=== PATIENT | male | born 1960 | race Caucasian/White ===

== ENCOUNTER 2024-02-05 07:27 | Observation (INO) ==
[2024-02-05] MEDS: NOZIN NASAL SANITIZER TP ONE (07:37)
[2024-02-05] MEDS: LR 1,000 ML IV 1,000 ML IV ONE ×3 (08:11→14:49)
[2024-02-05 08:15] LABS: BASOPHILS % (AUTO) 0.5 % (0.2-1.0); EOSINOPHILS # (AUTO) 0.1 x10^3/uL (0.0-0.2); HEMATOCRIT 34.2 % (42.0-54.0); HEMOGLOBIN 11.6 g/dL (13.5-18.0); LYMPHOCYTES % (AUTO) 23.3 % (21.0-51.0); MEAN CORPUSCULAR HEMOGLOBIN 33.2 pg (27.0-34.0); MEAN CORPUSCULAR HGB CONC 33.8 g/dL (33.0-35.0); MEAN CORPUSCULAR VOLUME 98.2 fL (80.0-100.0); MONOCYTES # (AUTO) 0.5 x10^3/uL (0.3-0.8); MONOCYTES % (AUTO) 11.6 % (0.0-13.0); NEUTROPHILS # (AUTO) 2.6 x10^3/uL (2.2-4.8); NEUTROPHILS % (AUTO) 61.6 % (42.0-75.0); PLATELET COUNT 210 X10^3/uL (150.0-450.0); RED BLOOD COUNT 3.48 X10^6/uL (4.7-6.0); RED CELL DISTRIBUTION WIDTH 13.8 % (11.6-16.5); WHITE BLOOD COUNT 4.2 X10^3/uL (3.6-10.0)
[2024-02-05 08:27] LABS: ALANINE AMINOTRANSFERASE 13 Units/L (12-78); ALBUMIN 3.4 g/dL (3.4-5.0); ALKALINE PHOSPHATASE 86 Units/L (46-116); ASPARTATE AMINO TRANSFERASE 16 Units/L (15-37); BLOOD UREA NITROGEN 13 mg/dL (7-18); CALCIUM 8.6 mg/dL (8.5-10.1); CARBON DIOXIDE 33.6 mmol/L (21-32); CHLORIDE 100 mmol/L (98-107); GLUCOSE 84 mg/dL (65-99); SODIUM 138 mmol/L (136-145); TOTAL PROTEIN 7.4 g/dL (6.4-8.2); eGFR NON BLACK RACES > 60 (>60)
[2024-02-05] MEDS: DUONEB 0.5 MG/3 MG (3 mL) NEB ONE (09:06)
[2024-02-05] MEDS: NS 100 ML IV 100 ML ONE ×2 (11:02→12:24)
[2024-02-05] MEDS: ANCEF VIAL 1 GRAM ONE (11:02)
[2024-02-05] MEDS ORDERED: NEO-SYNEPHRINE INJ ONE (11:13)
[2024-02-05] MEDS ORDERED: KETAMINE HCL ONE (11:13)
[2024-02-05] MEDS: VERSED ONE (11:14)
[2024-02-05] MEDS: FENTANYL VIAL INJ 100 mcg ONE (11:14)
[2024-02-05] MEDS: DIPRIVAN VIAL 40 ML ONE (11:15)
[2024-02-05] MEDS: VISIPAQUE 50 ML ONE (11:32)
[2024-02-05] MEDS: MARCAINE 0.5% ONE (11:32)
[2024-02-05] MEDS: HEPARIN SODIUM IN D5W 75,000 UNITS/1,500 ML BAG ONE (11:32)
[2024-02-05] MEDS: VISIPAQUE 100 ML ONE (11:32)
[2024-02-05] MEDS: ROBINUL ONE (11:36)
[2024-02-05] MEDS: DIPRIVAN VIAL 20 ML ONE ×2 (11:56→12:45)
[2024-02-05] MEDS: HEPARIN SODIUM INJ 5000 UNITS ONE ×2 (11:58→12:57)
[2024-02-05] MEDS: NS 500 ML IV 0 ML IV ONE (12:22)
[2024-02-05] MEDS: HEPARIN SODIUM IN D5W 25,000 UNITS/500 ML BAG ONE (12:23)
[2024-02-05] MEDS: ACTIVASE CATHFLO ONE (12:24)
[2024-02-05] MEDS: NS 1,000 ML IV 1,000 ML ONE (13:12)
[2024-02-05] MEDS ORDERED: ACTIVASE CATHFLO 12 MG in NS 250 ML IV 228 ML IV SCH (13:30)
--- NOTE | 2024-02-05 14:02 | OR.IMMED ---
IMMEDIATE POST-OP NOTE Immediate Post-Op Note Date of surgery/procedure: 02/05/24 Pre-Op Diagnosis: Critical ischemia right leg with completely occluded right superficial femoral artery Post-Op Diagnosis: same, history of stenting of completely occluded left superficial femoral artery with stenting of left external iliac artery added to previously placed stents 1 month ago, left leg now completely occluded and patient complaining of pain Procedure: Aortogram , diagnostic arteriogram of the left lower extremity , infusion of TPA and Angiojet thrombectomy of completely occluded left superficial femoral artery stents along its entire length with stenting of distal left external iliac artery, stenting proximal left superficial femoral artery Description of Procedure: dictated Surgeon/[employer] Driver: Andra Findings: as above Estimated Blood Loss: 450 cc Progress Notes: To CCU
[2024-02-05] MEDS: DILAUDID INJ ONE (14:11)
[2024-02-05] MEDS: ATIVAN INJ 2 MG VIAL ONE (14:16)
[2024-02-05] MEDS ORDERED: ATIVAN INJ 2 MG VIAL IVP PRN (14:29)
[2024-02-05 14:40] LABS: BASOPHILS % (AUTO) 0.5 % (0.2-1.0); EOSINOPHILS # (AUTO) 0.1 x10^3/uL (0.0-0.2); EOSINOPHILS % (AUTO) 3.1 % (0.9-2.9); HEMATOCRIT 26.5 % (42.0-54.0); HEMOGLOBIN 9.2 g/dL (13.5-18.0); LYMPHOCYTES # (AUTO) 1.3 X10^3/uL (1.3-2.9); LYMPHOCYTES % (AUTO) 27.3 % (21.0-51.0); MEAN CORPUSCULAR HEMOGLOBIN 34.5 pg (27.0-34.0); MEAN CORPUSCULAR HGB CONC 34.7 g/dL (33.0-35.0); MEAN CORPUSCULAR VOLUME 99.4 fL (80.0-100.0); MONOCYTES # (AUTO) 0.4 x10^3/uL (0.3-0.8); NEUTROPHILS # (AUTO) 2.9 x10^3/uL (2.2-4.8); NEUTROPHILS % (AUTO) 60.1 % (42.0-75.0); PLATELET COUNT 166 X10^3/uL (150.0-450.0); RED BLOOD COUNT 2.67 X10^6/uL (4.7-6.0); RED CELL DISTRIBUTION WIDTH 13.6 % (11.6-16.5); WHITE BLOOD COUNT 4.7 X10^3/uL (3.6-10.0)
[2024-02-05] MEDS: LR 1,000 ML IV 1,000 ML IV SCH (15:00)
[2024-02-05] MEDS ORDERED: PHENOBARBITAL SODIUM INJ 65 MG VIAL IM PRN (16:08)
[2024-02-05] MEDS ORDERED: MOTRIN TAB 800 MG PO PRN (16:08)
[2024-02-05] MEDS ORDERED: LIBRIUM PO PRN (16:08)
[2024-02-05] MEDS ORDERED: PROVENTIL NEB TX 0.083% 2.5MG/ 3ML ONE (16:45)
[2024-02-05] MEDS: PROVENTIL NEB TX 0.083% 2.5MG/ 3ML NEB SCH (16:47)
[2024-02-05 17:24] VITALS: BMI 18.4
[2024-02-05] MEDS: PHENOBARBITAL TAB 30 MG (32.4MG) PO SCH (18:12)
[2024-02-05] MEDS: DILAUDID INJ IVP PRN (18:13)
[2024-02-05] MEDS: TYLENOL 325 MG TAB PO PRN (20:14)
[2024-02-05 20:38] LABS: HEMATOCRIT 25.6 % (42.0-54.0); HEMOGLOBIN 8.7 g/dL (13.5-18.0)
[2024-02-05] MEDS: LOVENOX INJ 60 MG SYR SC SCH (21:34)
[2024-02-05] MEDS: CRESTOR TAB 10 MG PO SCH (21:34)
[2024-02-05] MEDS: SINGULAIR TAB 10 MG PO SCH (21:35)
[2024-02-05] MEDS: COREG TAB 25 MG PO SCH (21:36)
[2024-02-05] MEDS: LIORESAL PO SCH (21:36)
[2024-02-05] MEDS: DESYREL PO SCH (21:38)
[2024-02-05] MEDS: AMBIEN PO SCH (21:38)
[2024-02-05] MEDS: MAGNESIUM SULFATE 1 GRAM/100 mL PREMIX 1 G/100 ML BAG IV SCH (21:39)
[2024-02-06 05:45] LABS: HEMOGLOBIN 7.3 g/dL (13.5-18.0); WHITE BLOOD COUNT 6.5 X10^3/uL (3.6-10.0)
[2024-02-06 05:57] LABS: BASOPHILS % (AUTO) 0.5 % (0.2-1.0); EOSINOPHILS % (AUTO) 0.4 % (0.9-2.9); HEMATOCRIT 21.5 % (42.0-54.0); LYMPHOCYTES # (AUTO) 0.6 X10^3/uL (1.3-2.9); LYMPHOCYTES % (AUTO) 8.8 % (21.0-51.0); MEAN CORPUSCULAR HEMOGLOBIN 33.3 pg (27.0-34.0); MEAN CORPUSCULAR HGB CONC 33.8 g/dL (33.0-35.0); MEAN CORPUSCULAR VOLUME 98.7 fL (80.0-100.0); MEAN PLATELET VOLUME 7.6 fL (7.4-11.0); MONOCYTES # (AUTO) 0.7 x10^3/uL (0.3-0.8); MONOCYTES % (AUTO) 10.1 % (0.0-13.0); NEUTROPHILS # (AUTO) 5.2 x10^3/uL (2.2-4.8); NEUTROPHILS % (AUTO) 80.2 % (42.0-75.0); PLATELET COUNT 147 X10^3/uL (150.0-450.0); RED BLOOD COUNT 2.18 X10^6/uL (4.7-6.0); RED CELL DISTRIBUTION WIDTH 13.7 % (11.6-16.5)
[2024-02-06 06:06] LABS: ALANINE AMINOTRANSFERASE 17 Units/L (12-78); ALBUMIN 2.4 g/dL (3.4-5.0); ALKALINE PHOSPHATASE 56 Units/L (46-116); ASPARTATE AMINO TRANSFERASE 59 Units/L (15-37); BLOOD UREA NITROGEN 17 mg/dL (7-18); CALCIUM 7.7 mg/dL (8.5-10.1); CARBON DIOXIDE 31.8 mmol/L (21-32); CHLORIDE 101 mmol/L (98-107); CREATININE 1.08 mg/dL (0.70-1.30); GLUCOSE 106 mg/dL (65-99); POTASSIUM 4.4 mmol/L (3.5-5.1); SODIUM 136 mmol/L (136-145); TOTAL PROTEIN 5.1 g/dL (6.4-8.2); eGFR NON BLACK RACES > 60 (>60)
[2024-02-06] MEDS: NORVASC TAB 5 MG PO SCH (08:00)
[2024-02-06] MEDS: HYZAAR 50/12.5 MG PO SCH (08:00)
[2024-02-06 13:27] VITALS: BP 87/52; TEMP 99.4
--- NOTE | 2024-02-06 14:33 | W.DIS.FURT ---
Summary of Discharge Discharge Summary of Date Date of Exam: 02/06/24 Admission Date Date of Admission: 02/06/24 Admission Diagnosis Hospital Course: This is a 63 year old male with significant peripheral vascular disease and history of tobacco abuse. He presented approximately 1 month ago and had atherectomy and Drug coated stenting of the entire left superficial femoral artery completely as well as stenting of an additional portion of the left external iliac artery distally. Patient already had previously placed stents in the iliac artery on the left side. He had been seen in the office and had good flow in the left leg and was supposed to be scheduled for arterial intervention of the right leg. On the morning of the surgery he complained of increasing pain all of a sudden in the left leg. In the operating Suite there was some difficulty obtaining access to the left leg and I was worried about possibly injuring the distal end of the left external iliac stent, therefore from the right side we performed aortogram and subsequently fixed this stent with balloon angioplasty and a placed another stent distally in the left external iliac artery . Because of the complaints we studied the left leg and the entire left superficial femoral artery was occluded with clot inside the stents . This was probably chronic. He underwent Angiojet thrombectomy after we aerosolized TPA in the clot and let it sit for 20 minutes prior to continuing the case . Repeat arteriogram showed questionable remaining clot and there was a significant problem with the proximal left superficial femoral artery just after it's takeoff which did not have a stent. This was extended in the proximal left superficial femoral artery with a drug coated stent . F/U arteriogram showed flow through the entire leg with 3 vessel runoff left leg. We left the sheath in place and planned to repeat studies the next day and if possible consider EKOS thrombolytic therapy.Thrombolysis was not done initially because of the multiple sticks in the groin and I was worried it would bleed too much. Hemoglobin did decrease to approximately 7.3 grams. Now he does not want anything else done to the left leg although his left leg is warm with biphasic doppler signals in the left posterior tibial and left dorsalis pedis arteries. The sheath in the right groin has been removed. Vargas catheter removed. No other bleeding noted in the left groin. He will be discharged home and follow up with me in 1 week. He will still need intervention at the right leg and possibly additional intervention of the left of the left leg in the future. He is enc ouraged not to smoke and oh continue all his home medications including Xarelto and aspirin. Vital Signs: Vital Signs (72 hours) 02/05/24 08:04 02/05/24 08:04 02/05/24 14:30 Temperature 97.7 F 97.7 F Pulse Rate 51 L 51 L 55 L Respiratory Rate 18 16 Blood Pressure 109/63 132/70 O2 Sat by Pulse Oximetry 95 96 Oxygen Delivery Method Room Air Nasal Cannula Oxygen Flow Rate FIO2% 02/05/24 14:02 02/05/24 14:07 02/05/24 14:12 Temperature 97.0 F L Pulse Rate 68 60 54 L Respiratory Rate 18 18 17 Blood Pressure 170/78 139/72 144/85 O2 Sat by Pulse Oximetry 99 99 99 Oxygen Delivery Method Nasal Cannula Nasal Cannula Nasal Cannula Oxygen Flow Rate FIO2% 02/05/24 14:17 02/05/24 14:22 02/05/24 14:27 Temperature Pulse Rate 53 L 53 L 45 L Respiratory Rate 17 17 17 Blood Pressure 157/91 132/64 140/64 O2 Sat by Pulse Oximetry 99 99 99 Oxygen Delivery Method Nasal Cannula Nasal Cannula Nasal Cannula Oxygen Flow Rate FIO2% 02/05/24 14:32 02/05/24 14:37 02/05/24 14:42 Temperature Pulse Rate 49 L 51 L 51 L Respiratory Rate 18 18 18 Blood Pressure 130/61 128/69 130/61 O2 Sat by Pulse Oximetry 97 97 94 L Oxygen Delivery Method Nasal Cannula Nasal Cannula Nasal Cannula Oxygen Flow Rate FIO2% 02/05/24 14:52 02/05/24 15:05 02/05/24 14:11 Temperature Pulse Rate 52 L 45 L Respiratory Rate 18 18 18 Blood Pressure 140/64 153/73 O2 Sat by Pulse Oximetry 97 96 Oxygen Delivery Method Nasal Cannula Nasal Cannula Oxygen Flow Rate FIO2% 02/05/24 14:47 02/05/24 15:00 02/05/24 15:10 Temperature Pulse Rate 49 L 53 L 46 L Respiratory Rate 18 18 18 Blood Pressure 130/61 132/64 145/75 O2 Sat by Pulse Oximetry 99 97 94 L Oxygen Delivery Method Nasal Cannula Nasal Cannula Nasal Cannula Oxygen Flow Rate FIO2% 02/05/24 15:15 02/05/24 16:47 02/05/24 15:45 Temperature Pulse Rate 46 L 74 Respiratory Rate 18 Blood Pressure 140/72 O2 Sat by Pulse Oximetry 94 L 99 Oxygen Delivery Method Nasal Cannula Nasal Cannula Oxygen Flow Rate 4 FIO2% 36 02/05/24 17:15 02/05/24 18:13 02/05/24 15:45 Temperature 97.3 F L Pulse Rate 69 Respiratory Rate 16 23 Blood Pressure 161/101 O2 Sat by Pulse Oximetry 100 Oxygen Delivery Method Nasal Cannula Nasal Cannula Oxygen Flow Rate 2 4 FIO2% 02/05/24 16:00 02/05/24 16:15 02/05/24 16:30 Temperature 97.3 F L 97.9 F 97.9 F Pulse Rate 65 60 77 Respiratory Rate 20 16 19 Blood Pressure 166/91 161/86 151/84 O2 Sat by Pulse Oximetry 100 100 100 Oxygen Delivery Method Nasal Cannula Nasal Cannula Nasal Cannula Oxygen Flow Rate 4 4 4 FIO2% 02/05/24 16:45 02/05/24 17:45 02/05/24 18:45 Temperature 97.9 F 97.9 F 100.1 F H Pulse Rate 87 95 H 87 Respiratory Rate 19 17 12 Blood Pressure 150/67 99/72 81/55 O2 Sat by Pulse Oximetry 100 100 99 Oxygen Delivery Method Nasal Cannula Nasal Cannula Nasal Cannula Oxygen Flow Rate 4 4 2 FIO2% 02/05/24 18:43 02/05/24 19:45 02/05/24 20:14 Temperature 101.0 F H Pulse Rate 82 Respiratory Rate 12 12 12 Blood Pressure 99/63 O2 Sat by Pulse Oximetry 97 Oxygen Delivery Method Nasal Cannula Oxygen Flow Rate 2 FIO2% 02/05/24 20:45 02/05/24 20:05 02/05/24 20:00 Temperature 98.6 F Pulse Rate 96 H 85 Respiratory Rate 24 Blood Pressure 107/72 O2 Sat by Pulse Oximetry 98 100 Oxygen Delivery Method Nasal Cannula Nasal Cannula Oxygen Flow Rate 2 2 FIO2% 28 02/05/24 21:35 02/05/24 19:00 02/05/24 22:00 Temperature Pulse Rate 95 H Respiratory Rate 16 26 H Blood Pressure 90/51 O2 Sat by Pulse Oximetry 97 Oxygen Delivery Method Nasal Cannula Nasal Cannula Oxygen Flow Rate 2 2 FIO2% 02/05/24 23:00 02/05/24 22:05 02/05/24 21:14 Temperature Pulse Rate 86 Respiratory Rate 14 26 H 12 Blood Pressure 93/56 O2 Sat by Pulse Oximetry 92 L Oxygen Delivery Method Nasal Cannula Oxygen Flow Rate 2 FIO2% 02/06/24 00:00 02/06/24 01:00 02/06/24 02:00 Temperature 98.9 F Pulse Rate 89 86 82 Respiratory Rate 17 16 12 Blood Pressure 85/67 84/51 98/60 O2 Sat by Pulse Oximetry 100 96 97 Oxygen Delivery Method Nasal Cannula Nasal Cannula Nasal Cannula Oxygen Flow Rate 2 2 2 FIO2% 02/06/24 03:00 02/06/24 04:00 02/06/24 05:00 Temperature 98.7 F Pulse Rate 79 71 71 Respiratory Rate 26 H 24 14 Blood Pressure 93/55 92/54 78/48 O2 Sat by Pulse Oximetry 98 98 99 Oxygen Delivery Method Nasal Cannula Nasal Cannula Nasal Cannula Oxygen Flow Rate 2 2 2 FIO2% 02/06/24 06:00 02/06/24 01:06 02/06/24 01:15 Temperature Pulse Rate 67 Respiratory Rate 32 H Blood Pressure 79/46 82/60 96/52 O2 Sat by Pulse Oximetry 98 Oxygen Delivery Method Nasal Cannula Oxygen Flow Rate 2 FIO2% 02/06/24 01:15 02/06/24 01:30 02/06/24 01:30 Temperature Pulse Rate 82 83 Respiratory Rate 11 L 15 Blood Pressure 80/52 O2 Sat by Pulse Oximetry 96 96 Oxygen Delivery Method Oxygen Flow Rate FIO2% 02/06/24 01:45 02/06/24 01:45 02/06/24 02:00 Temperature Pulse Rate 85 Respiratory Rate 22 Blood Pressure 80/51 98/60 O2 Sat by Pulse Oximetry 97 Oxygen Delivery Method Oxygen Flow Rate FIO2% 02/06/24 02:00 02/06/24 02:15 02/06/24 02:31 Temperature Pulse Rate 82 83 81 Respiratory Rate 12 25 H 21 Blood Pressure O2 Sat by Pulse Oximetry 97 96 96 Oxygen Delivery Method Oxygen Flow Rate FIO2% 02/06/24 02:45 02/06/24 02:47 02/06/24 02:47 Temperature Pulse Rate 81 80 Respiratory Rate 30 H 19 Blood Pressure 86/50 O2 Sat by Pulse Oximetry 97 97 Oxygen Delivery Method Oxygen Flow Rate FIO2% 02/06/24 03:00 02/06/24 03:01 02/06/24 03:01 Temperature Pulse Rate 79 79 Respiratory Rate 17 26 H Blood Pressure 93/55 O2 Sat by Pulse Oximetry 97 98 Oxygen Delivery Method Oxygen Flow Rate FIO2% 02/06/24 03:15 02/06/24 03:30 02/06/24 03:30 Temperature Pulse Rate 74 74 Respiratory Rate 19 16 Blood Pressure 80/49 O2 Sat by Pulse Oximetry 98 96 Oxygen Delivery Method Oxygen Flow Rate FIO2% 02/06/24 03:45 02/06/24 04:00 02/06/24 04:00 Temperature Pulse Rate 74 74 Respiratory Rate 21 19 Blood Pressure 73/50 O2 Sat by Pulse Oximetry 98 97 Oxygen Delivery Method Oxygen Flow Rate FIO2% 02/06/24 04:02 02/06/24 04:02 02/06/24 04:15 Temperature Pulse Rate 74 71 Respiratory Rate 18 23 Blood Pressure 77/56 O2 Sat by Pulse Oximetry 95 98 Oxygen Delivery Method Oxygen Flow Rate FIO2% 02/06/24 04:30 02/06/24 04:30 02/06/24 04:32 Temperature Pulse Rate 72 72 Respiratory Rate 22 17 Blood Pressure 68/49 O2 Sat by Pulse Oximetry 96 96 Oxygen Delivery Method Oxygen Flow Rate FIO2% 02/06/24 04:32 02/06/24 04:33 02/06/24 04:33 Temperature Pulse Rate 73 Respiratory Rate 21 Blood Pressure 73/50 64/47 O2 Sat by Pulse Oximetry 97 Oxygen Delivery Method Oxygen Flow Rate FIO2% 02/06/24 04:37 02/06/24 04:37 02/06/24 04:45 Temperature Pulse Rate 70 71 Respiratory Rate 14 17 Blood Pressure 92/54 O2 Sat by Pulse Oximetry 97 99 Oxygen Delivery Method Oxygen Flow Rate FIO2% 02/06/24 05:00 02/06/24 05:00 02/06/24 05:15 Temperature Pulse Rate 72 75 Respiratory Rate 21 19 Blood Pressure 78/48 O2 Sat by Pulse Oximetry 83 L 98 Oxygen Delivery Method Oxygen Flow Rate FIO2% 02/06/24 05:30 02/06/24 05:45 02/06/24 06:00 Temperature Pulse Rate 69 76 Respiratory Rate 18 16 Blood Pressure 72/45 O2 Sat by Pulse Oximetry 100 94 L Oxygen Delivery Method Oxygen Flow Rate FIO2% 02/06/24 06:00 02/06/24 06:13 02/06/24 06:13 Temperature Pulse Rate 69 68 Respiratory Rate 15 13 Blood Pressure 79/46 O2 Sat by Pulse Oximetry 95 96 Oxygen Delivery Method Oxygen Flow Rate FIO2% 02/06/24 06:15 02/06/24 06:30 02/06/24 06:45 Temperature Pulse Rate 66 67 70 Respiratory Rate 12 14 15 Blood Pressure O2 Sat by Pulse Oximetry 95 93 L 96 Oxygen Delivery Method Oxygen Flow Rate FIO2% 02/06/24 07:00 02/06/24 07:00 02/06/24 07:15 Temperature Pulse Rate 68 69 Respiratory Rate 13 14 Blood Pressure 91/54 O2 Sat by Pulse Oximetry 95 97 Oxygen Delivery Method Oxygen Flow Rate FIO2% 02/06/24 07:30 02/06/24 07:45 02/06/24 08:00 Temperature Pulse Rate 64 69 68 Respiratory Rate 65 H 14 14 Blood Pressure O2 Sat by Pulse Oximetry 97 98 98 Oxygen Delivery Method Oxygen Flow Rate FIO2% 02/06/24 08:00 02/06/24 07:00 02/06/24 08:15 Temperature Pulse Rate 73 Respiratory Rate 25 H Blood Pressure 106/51 O2 Sat by Pulse Oximetry 98 Oxygen Delivery Method Nasal Cannula Oxygen Flow Rate 2 FIO2% 02/06/24 08:30 02/06/24 08:45 02/06/24 09:00 Temperature Pulse Rate 76 75 70 Respiratory Rate 35 H 36 H 17 Blood Pressure O2 Sat by Pulse Oximetry 94 L 83 L 99 Oxygen Delivery Method Oxygen Flow Rate FIO2% 02/06/24 09:00 02/06/24 09:15 02/06/24 09:30 Temperature 98.2 F Pulse Rate 68 72 Respiratory Rate 17 8 L Blood Pressure 102/53 O2 Sat by Pulse Oximetry 99 96 Oxygen Delivery Method Oxygen Flow Rate FIO2% 02/06/24 09:45 02/06/24 10:00 02/06/24 10:00 Temperature Pulse Rate 71 72 Respiratory Rate 12 14 Blood Pressure 86/54 O2 Sat by Pulse Oximetry 95 95 Oxygen Delivery Method Oxygen Flow Rate FIO2% 02/06/24 10:15 02/06/24 10:30 02/06/24 10:45 Temperature Pulse Rate 72 72 71 Respiratory Rate 14 16 15 Blood Pressure O2 Sat by Pulse Oximetry 96 97 96 Oxygen Delivery Method Oxygen Flow Rate FIO2% 02/06/24 11:00 02/06/24 11:00 02/06/24 11:15 Temperature Pulse Rate 77 74 Respiratory Rate 28 H 23 Blood Pressure 91/50 O2 Sat by Pulse Oximetry 82 L 98 Oxygen Delivery Method Oxygen Flow Rate FIO2% 02/06/24 11:30 02/06/24 11:45 02/06/24 12:00 Temperature Pulse Rate 70 79 Respiratory Rate 13 35 H Blood Pressure 99/53 O2 Sat by Pulse Oximetry 97 99 Oxygen Delivery Method Oxygen Flow Rate FIO2% 02/06/24 12:00 02/06/24 12:15 02/06/24 13:03 Temperature Pulse Rate 80 81 74 Respiratory Rate 18 30 H Blood Pressure O2 Sat by Pulse Oximetry 96 95 94 L Oxygen Delivery Method Oxygen Flow Rate FIO2% 02/06/24 12:30 02/06/24 12:45 02/06/24 13:00 Temperature 99.4 F Pulse Rate 75 74 76 Respiratory Rate 12 14 21 Blood Pressure O2 Sat by Pulse Oximetry 89 L 90 L 92 L Oxygen Delivery Method Oxygen Flow Rate FIO2% 02/06/24 13:00 02/06/24 13:15 Temperature Pulse Rate 81 Respiratory Rate 28 H Blood Pressure 87/52 O2 Sat by Pulse Oximetry 94 L Oxygen Delivery Method Oxygen Flow Rate FIO2% Labs: Laboratory Last Values WBC 6.5 X10^3/uL (3.6-10.0) 02/06/24 04:20 RBC 2.18 X10^6/uL (4.7-6.0) L 02/06/24 04:20 Hgb 7.3 g/dL (13.5-18.0) L 02/06/24 04:20 Hct 21.5 % (42.0-54.0) L 02/06/24 04:20 MCV 98.7 fL (80.0-100.0) 02/06/24 04:20 MCH 33.3 pg (27.0-34.0) 02/06/24 04:20 MCHC 33.8 g/dL (33.0-35.0) 02/06/24 04:20 RDW 13.7 % (11.6-16.5) 02/06/24 04:20 Plt Count 147 X10^3/uL (150.0-450.0) L 02/06/24 04:20 MPV 7.6 fL (7.4-11.0) 02/06/24 04:20 Neut % (Auto) 80.2 % (42.0-75.0) H 02/06/24 04:20 Lymph % (Auto) 8.8 % (21.0-51.0) L 02/06/24 04:20 [facility] % (Auto) 10.1 % (0.0-13.0) 02/06/24 04:20 Eos % (Auto) 0.4 % (0.9-2.9) L 02/06/24 04:20 Baso % (Auto) 0.5 % (0.2-1.0) 02/06/24 04:20 Neut # (Auto) 5.2 x10^3/uL (2.2-4.8) H 02/06/24 04:20 Lymph # (Auto) 0.6 X10^3/uL (1.3-2.9) L 02/06/24 04:20 [facility] # (Auto) 0.7 x10^3/uL (0.3-0.8) 02/06/24 04:20 Eos # (Auto) 0.0 x10^3/uL (0.0-0.2) 02/06/24 04:20 Baso # (Auto) 0.0 X10^3/uL (0.0-0.1) 02/06/24 04:20 Absolute Nucleated RBC 0.0 /100WBC 02/06/24 04:20 Sodium 136 mmol/L (136-145) 02/06/24 04:20 Corrected Sodium TNP 02/06/24 04:20 Potassium 4.4 mmol/L (3.5-5.1) 02/06/24 04:20 Chloride 101 mmol/L (98-107) 02/06/24 04:20 Carbon Dioxide 31.8 mmol/L (21-32) 02/06/24 04:20 BUN 17 mg/dL (7-18) 02/06/24 04:20 Creatinine 1.08 mg/dL (0.70-1.30) 02/06/24 04:20 Est GFR (MDRD) Af Amer > 60 (>60) 02/06/24 04:20 Est GFR (MDRD) Non-Af > 60 (>60) 02/06/24 04:20 Glucose 106 mg/dL (65-99) H 02/06/24 04:20 POC Glucose (mg/dL) 79 mg/dL (65-99) 02/05/24 14:25 Calcium 7.7 mg/dL (8.5-10.1) L 02/06/24 04:20 Corrected Calcium 9.0 mg/dL (8.5-10.1) 02/06/24 04:20 Total Bilirubin 0.60 mg/dL (0.2-1.0) 02/06/24 04:20 AST 59 Units/L (15-37) H 02/06/24 04:20 ALT 17 Units/L (12-78) 02/06/24 04:20 Alkaline Phosphatase 56 Units/L (46-116) 02/06/24 04:20 Total Protein 5.1 g/dL (6.4-8.2) L 02/06/24 04:20 Albumin 2.4 g/dL (3.4-5.0) L 02/06/24 04:20 Globulin 2.7 g/dL (2.5-4.5) 02/06/24 04:20 Albumin/Globulin Ratio 0.9 Ratio (1.1-2.1) L 02/06/24 04:20 Blood Type O POSITIVE 02/05/24 07:58 Blood Type O POSITIVE 02/05/24 07:58 Antibody Screen Negative 02/05/24 07:58 Reason For Visit: AORTOGRAM Discharge Date Discharge Date: 02/06/24 Discharge Diagnosis All Active Problems (Updated 02/06/24 @ 14:30 by Yousuf Silverman) Atherosclerosis of [place] arteries of extremities with rest pain, left leg (Acute) Atherosclerosis of [place] arteries of extremities with rest pain, right leg (Acute) Foot pain (Acute) Bronchitis (Acute) Plan of Treatment: Continue with present treatment and follow up plan. Pt is to keep follow up appointment as instructed and take medications as ordered. Discharge Medications Discharge Medications: aspirin Allergy (Verified 01/05/24 11:12) indomethacin Allergy (Verified 01/06/24 08:15) meperidine [From Demerol] Adverse Reaction (Verified 01/24/18 09:32) Xarelto 2.5 mg po BID Aspirin 81 mg po daily Discharge Disposition Assessment: see hospital course Discharge Plan Discharge Plan Hospital Course: This is a 63 year old male with significant peripheral vascular disease and history of tobacco abuse. He presented approximately 1 month ago and had atherectomy and Drug coated stenting of the entire left superficial femoral artery completely as well as stenting of an additional portion of the left external iliac artery distally. Patient already had previously placed stents in the iliac artery on the left side. He had been seen in the office and had good flow in the left leg and was supposed to be scheduled for arterial intervention of the right leg. On the morning of the surgery he complained of increasing pain all of a sudden in the left leg. In the operating Suite there was some difficulty obtaining access to the left leg and I was worried about possibly injuring the distal end of the left external iliac stent, therefore from the right side we performed aortogram and subsequently fixed this stent with balloon angioplasty and a placed another stent distally in the left external iliac artery . Because of the complaints we studied the left leg and the entire left superficial femoral artery was occluded with clot inside the stents . This was probably chronic. He underwent Angiojet thrombectomy after we aerosolized TPA in the clot and let it sit for 20 minutes prior to continuing the case . Repeat arteriogram showed questionable remaining clot and there was a significant problem with the proximal left superficial femoral artery just after it's takeoff which did not have a stent. This was extended in the proximal left superficial femoral artery with a drug coated stent . F/U arteriogram showed flow through the entire leg with 3 vessel runoff left leg. We left the sheath in place and planned to repeat studies the next day and if possible consider EKOS thrombolytic therapy.Thrombolysis was not done initially because of the multiple sticks in the groin and I was worried it would bleed too much. Hemoglobin did decrease to approximately 7.3 grams. Now he does not want anything else done to the left leg although his left leg is warm with biphasic doppler signals in the left posterior tibial and left dorsalis pedis arteries. The sheath in the right groin has been removed. Vargas catheter removed. No other bleeding noted in the left groin. He will be discharged home and follow up with me in 1 week. He will still need intervention at the right leg and possibly additional intervention of the left of the left leg in the future. He is encouraged not to smoke and oh continue all his home medications including Xarelto and aspirin. Patient Disposition: 01 HOME, SELF-CARE Condition: Stable Health Concerns: Post Hospitalization: new medications and changes needed to prevent readmission or further decline. Pt educated and given instructions on all concerns. Care Plan Goals: Problem: Altered Tissue Perfusion Goal: Adequate Tissue Perfusion Instructions: Follow provided instructions. Follow up with primary physician as directed. Contact primary care physician or report to the closest Emergency Room if condition worsens. Plan of Treatment: Continue with present treatment and follow up plan. Pt is to keep follow up appointment as instructed and take medications as ordered. Assessment: see hospital course Prescription drug monitoring program results: PDMP reviewed and no concerns identified Prescriptions: Continued ibuprofen 600 MG tablet 600 mg PO TID PRN (Reason: Pain/Inflammation) Qty: 20 0RF carvedilol 25 mg Tablet 25 mg PO BID Rx Instructions: must administer with a meal/food albuterol sulfate 2.5 mg /3 mL (0.083 %) Solution For Nebulization 2.5 mg inhalation Q6H PRN (Reason: Shortness Of Breath) amlodipine [Norvasc] 5 mg Tablet 5 mg PO QDAY baclofen 20 mg Tablet 20 mg PO TID trazodone 100 mg Tablet 100 mg PO QDAY gabapentin 300 mg Capsule 300 mg PO QAM montelukast [Singulair] 10 mg Tablet 10 mg PO QDAY albuterol sulfate 90 mcg/actuation Hfa Aerosol Inhaler 2 puff INHALATION Q6H PRN (Reason: Shortness Of Breath Or Wheezing) nortriptyline 50 mg Capsule 50 mg PO TID rosuvastatin [Crestor] 40 mg Tablet 40 mg PO QDAY losartan-hydrochlorothiazide [Hyzaar] 100-12.5 mg Tablet 1 tab PO QDAY Orders to Discharge Patient Discharge Orders: Discharge (Routine); Ordered 02/06/24 Ordered By: Yousuf Silverman Follow ups/Referrals Follow ups/Referrals: VITA JONES [Primary Care Provider] - PCP Yousuf Silverman [STAFF PHYSICIAN] - 02/16/24 3:15 pm Instructions Instructions: Atherectomy, Care After, Endovascular Therapy for Peripheral Vascular Disease, Care After, Angiogram, Care After, [id number], Monitored Anesthesia Care, Care After Activity Restrictions/Additional Instructions: POST OPERATIVE INSTRUCTIONS: (1) A RESPONSIBLE ADULT SHOULD REMAIN WITH YOU TODAY, YOU SHOULD BE ASSISTED TO THE BATHROOM FOR 6-8 HOURS. REST QUIETLY THE REMAINDER OF THE DAY. (2) DEEP BREATHING AND COUGHING EXERCISES FOR THE NEXT 6-8 HOURS. (3)SMOKE ONLY IF SOMEONE IS WITH YOU FOR THE NEXT 12 HOURS. (4) DIET TOLERATED, DRINK PLENTY OF WATER. (5) DO NOT DRIVE YOUR AUTOMOBILE OR OPERATE MACHINERY FOR 12-18 HOURS AFTER RECE IVING A GENERAL ANESTHETIC OR WHILE TAKING NARCOTIC PAIN MEDICATION. (6) SOME ANESTHETIC AGENTS AND MEDICATION TAKEN FOR PAIN MAY CAUSE NAUSEA. IF NAUSEA PERSISTS FOR SEVERAL HOURS AT HOME, CALL YOUR DOCTOR. (7) LIGHT ACTIVITIES. (8) OBSERVE OPERATIVE AREA FOR SIGNS OF INFECTION: REDNESS, SWELLING, FOUL ODOR, DRAINAGE, AND NOTIFY FOR ANY CONCERNS OR FEVER OVER 101.0. (9) KEEP OPERATIVE AREA CLEAN AND DRY. YOU MAY REMOVE DRESSING AFTER 24 HOURS AND SHOWER/BATH WITH ANTIBACTERIAL SOAP. (10) RESUME ALL PREVIOUS MEDICATIONS PRESCRIBED BY YOUR DOCTOR. (11) TAKE PAIN MEDICATIONS PRESCRIBED. (12) OBSERVE AFFECTED AREA FOR CIRCULATION, CHANGE OF COLOR, NUMBNESS OR TINGLING, COLDNESS, INCREASED PAIN, OR BLEEDING. FOR ANY COMPLICATIONS PLEASE CALL DR. SILVERMAN @ PRIOR TO GOING TO EMERGENCY DEPARTMENT. FOLLOW UP WITH DR. SILVERMAN ON Stand Alone Forms: Post Hospital Follow Up Care
[2024-02-06 15:06] VITALS: PULSE 70; RESP 12; O2SAT 83
[2024-02-06] MEDS ORDERED: THIAMINE HCL INJ IM SCH (21:00)
--- NOTE | 2024-02-08 15:02 | DR.OPNOTE ---
OP NOTE Pre-Op Diagnosis: critical ischemia right leg, critical ischemia left leg Post-Op Diagnosis: Only intervened on the left leg, right leg intervention to be rescheduled Procedure Date Date Of Procedure: 02/05/24 Procedure: PROCEDURE: DIAGNOSTIC AORTOGRAM, DIAGNOSTIC ARTERIOGRAM LEFT LEG, INSTILLATION TPA LEFT LEG COMPLETELY OCCLUDED LEFT SUPERFICIAL FEMORAL ARTERY AND STENTS, ANGIOJET THROMBECTOMY OF THE LEFT SUPERFICIAL FEMORAL ARTERY AND ELE NTS , DRUG COATED STENING LEFT EXTERNAL ILIAC ARTERY, DRUG COATED STENTING LEFT PROXIMAL SUPERFICIAL FEMORAL ARTERY. NARRATIVE : The patient was taken to the operative suite and placed in the supine position. The right entire leg and the entire left leg were prepped and draped in sterile fashion. The patient was given intravenous sedation supervised by myself. Time out for the procedure obtained. Ultrasound used to identifyb the left femoral artery and the skin overlying it infiltrated with 0.5% Marcaine . Ultrasound used to guide puncture of the left femoral aretery and a 0.012 inch guide wire placed. incision made over the guide wire at the skin edge with a number 11 knife blade and a micro sheath placed over the guide wire into the left femoral artery. The small wire exchanged for a 0.035 inch Advantage [place] wire and the micro sheath exchanged for a 5 Arabic vascular sheath. I was concerned about possible injury to the distal aspect of the left external iliac stent stent and arteriogram showed that this was now occluded. Therefore, we used ultrasound to identify the right femoral artery and the skin overlying it infiltrated with 0.5% Marcaine. Ultrasound then used to guide puncture of the right femoral artery and a 0.012 inch guide wire was placed. Incision made over the guide wire at the skin edge with a # 11 knife blade and a micro sheath placed over the guide wire into the right femoral artery The small guidewire exchanged for a 0.035 inch Advantage glide wire and the micro sheath exchanged for a 5 Fr vascular sheath. Patient given 5000 units of intravenous heparin. Omni catheter was placed over the guide wire into the aorta and diagnostic aortogram carried out with the power injector showing patent aorta and patent right iliac artery. The left iliac artery was occlued at the end of the last eternal iliac artery stent . Omni catheter was used to steer the guide wire down the left common iliac artery to the distal left external iliac artery . I was able to get a wire across the end of the left left external iliac artery stent and balloon dialted it with a 5 mm [place] balloon . Arteriogram contirmed that the end of the stent was open but all of the stents of the left superficial femoral artery were occluded with reconstitution of the left politeal artery and good runoff to the left leg . The 5 Fr sheath in the right groin then exchanged for a 7 Fr [place] destination sheath which was parked in the left external iliac artery.[place] catheter and the guide wire were used to traverse the thrombosed arteries of the left leg ultimately ending in the left posterior tibial artery . This was selective catheterization. 0.035 inch wire removed and exchanged for a 0.014 inch wire. Over this wire we placed the Angiojet device and used it to spray TPA all along the clotted superficial femoral arteries and stents. We let the TPA work for 30 minutes and then used the Angiojet device to performe percutaneous thrombectomy of the entire thombosed left superficial femoral artery .At the completion of this a follow up arteriogram showed the left superficial femoral artery to be patent with quesion of some remaining clot and severe stenosis of the proximal left superficial femoral artery which did not have a stent . Over the wire we then placed an Radha 7 mmx 60mm drug coated stent in the proximal left superficial femoral artery and minimally overlaped in with the proximal most present stent and balloon dilated it with a 7 mm [place] balloon. An Radha 7mmx 40 mm stent was placed over the end of the distal left external iliac stent which I believe I rolled up on intial left sided access This was balloon dilated with a 7 mm [place] balloon . Repeat arteriogram showed good result of these two stents on the left side. The 7 Fr sheath was left in the left external iliac artery from the left side and secured to the right groin with silk suture ligature and dressing. I did not run EKOS ditected TPA throught the left leg thrombosed area because I was worried the left groin would bleed significantly. I started therapuetuic Lovenox and plan to bring him back the next day and repeat arteriogram left leg and if throumbus remains may place EKOS catheter for directed thrmbolysis. Left groin sheath removed and pressure held over this puncture for 10 minutes. The patient taken to CCU in good condition. Right leg will require arterial intervention in the near future . Type of Anesthesia: Local (0.5% Marcaine ) Anesthesia Comment: plus MAC Findings: The patient had previously had left leg arterial intervention but has continued to smoke and has only been taking aspirin intermittently. Today we had planned intervention of the right leg but in the holding area he had complained of severe acute onset of left leg pain within the last 24 hours. We intervened on the left leg. Right leg will still need re-vascularization in the near future . Type of Fluids Used:: Lactated Ringers Total Amount of Fluid Infused:: 1000c Urine output: 300 cc EBL: 150cc Hardware: Radha drug coated stents placed left external iliac artery and left proximal superficial femoral artery. Complications:: none Needle/Sponge Count:: correct Disposition/Condition: Pt. tolerated procedure without difficulty. Taken to CCU in stable condition.
[2024-02-08] MEDS ORDERED: PHENOBARBITAL TAB 15 MG (16.2MG) PO SCH (21:00)
== END 2024-02-06 15:50 | disposition home or self-care (01) ==
LOC: SURG1 07:27 → ICU 07:27
PROVIDERS: ADMIT Surgery; ATTEND Surgery
DX: Z59.41 Food insecurity; Z59.87 Material hardship due to limited financial resources, not elsewhere classified; Z72.0 Tobacco use; I10 Essential (primary) hypertension; I70.223 Atherosclerosis of native arteries of extremities with rest pain, bilateral legs; J44.9 Chronic obstructive pulmonary disease, unspecified; Z59.86 Financial insecurity